=== PATIENT | female | born 1970 ===

== ENCOUNTER 2018-05-22 09:18 | Outpatient (CLI) | payer OTHER | END 2018-05-22 09:21 | disposition home or self-care (01) | LOC: SONOGRAMA 09:18 | DX: E06.1 Subacute thyroiditis (principal) ==

== ENCOUNTER 2022-08-12 06:24 | Day surgery (SDC) | payer OTHER ==
[~2022-08-12] VITALS: Ht 165.1 cm; Wt 60.3 kg
[2022-08-12] MEDS ORDERED: MORGIDOX100 MG PO (14:09)
[2022-08-12] MEDS ORDERED: IBU600 MG PO (14:10)
== END 2022-08-12 17:25 | disposition home or self-care (01) ==
LOC: CIR.AMB 06:24
PROVIDERS: ATTEND Obstetrics & Gynecology
DX: N93.8 Other specified abnormal uterine and vaginal bleeding (principal); N84.0 Polyp of corpus uteri; D25.0 Submucous leiomyoma of uterus; Z20.822 Contact with and (suspected) exposure to COVID-19